=== PATIENT | female | born 1960 | race Caucasian/White ===

== ENCOUNTER → 2019-12-08 15:27 | Outpatient (CLI) | payer OTHER, SELFPAY ==
--- NOTE | ~2019-12-08 | XR_ITS ---
EXAMINATION: XR shoulder RT min 2V DATE: 12/08/2019 15:48 INDICATION: Right shoulder osteoarthritis. Calcific tendinitis. TECHNIQUE: 4 views of right shoulder were obtained. COMPARISON: Right shoulder radiographs 05/06/2019 FINDINGS: Bone alignment is normal. No fracture. There is mild osteoarthritis of glenohumeral joint a nd acromioclavicular joint. IMPRESSION: 1. Unchanged mild polyarticular osteoarthritis. Reviewed, dictated and finalized at location A. 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
== END ==
PROVIDERS: Visit Provider Chiropractor
DX: M19.011 Primary osteoarthritis, right shoulder (principal)
CPT/HCPCS: 73030

== ENCOUNTER → 2020-01-28 15:20 | Outpatient (CLI) | payer OTHER, SELFPAY ==
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
== END ==
PROVIDERS: Visit Provider Chiropractor
DX: S02.85XA Fracture of orbit, unspecified, initial encounter for closed fracture (principal); X58.XXXA Exposure to other specified factors, initial encounter
CPT/HCPCS: 70480

== ENCOUNTER → 2020-08-10 14:08 | Outpatient (CLI) | payer OTHER, SELFPAY ==
--- NOTE | ~2020-08-10 | CT_ITS ---
EXAMINATION: CT chest w con DATE: 08/10/2020 14:37 INDICATION: Chest pain and shortness of breath, history of pulmonary embolism TECHNIQUE: Transaxial computed tomographic images of the chest were obtained after the administration of 75 cc of Omnipaque 350 intravenous contrast. The dose-length product (DLP) was 366.16 mGy-cm. Ite rative reconstruction was used. COMPARISON: None FINDINGS: There is a 9 mm nodule in the superior segment of the left lower lobe. Mild dependent atele ctasis is noted. There is no pleural effusion or pneumothorax. The left lobe of the thyroid is absent . No pathologically enlarged thoracic lymph nodes are identified. The heart size is normal. The gallb ladder is surgically absent. The liver is diffusely low in attenuation when compared with the spleen, consistent with hepatic steatosis. There is mild thoracic spondylosis. IMPRESSION: 1. 9 mm nodule of the left lower lobe which may be infectious or inflammatory. Follow-up CT in three months is recommended. Reviewed, dictated and finalized at location A.
[2020-08-10 14:26] LABS: Estimated Glomerular Filt Rate 50
== END ==
PROVIDERS: PCP Internal Medicine Endocrinology, Diabetes & Metabolism; Visit Provider Internal Medicine Endocrinology, Diabetes & Metabolism
DX: R06.02 Shortness of breath (principal); Z86.711 Personal history of pulmonary embolism; R91.1 Solitary pulmonary nodule
CPT/HCPCS: 71260; Q9967

== ENCOUNTER → 2020-08-18 15:03 | Outpatient (CLI) | payer OTHER, SELFPAY ==
--- NOTE | ~2020-08-18 | US_ITS ---
EXAMINATION:US venous doppler LE BI INDICATION:Abnormal coagulation profile TECHNIQUE: Multiple grayscale, color flow and Doppler images of the right and left lower extremity de ep venous systems were obtained and reviewed. COMPARISON:No prior studies for comparison. FINDINGS: The common femoral, superficial femoral and popliteal veins demonstrate normal respiratory variation, augmentation and compressibility. Color flow is also seen within the posterior tibial, pe roneal, greater saphenous and profunda veins. IMPRESSION: 1: No lower extremity deep venous thrombosis. Reviewed, dictated and finalized at location B.
== END ==
PROVIDERS: PCP Nurse Practitioner; Visit Provider Nurse Practitioner
DX: R79.1 Abnormal coagulation profile (principal)
CPT/HCPCS: 93970

== ENCOUNTER → 2020-12-22 15:15 | Outpatient (CLI) | payer OTHER, SELFPAY ==
--- NOTE | ~2020-12-22 | CT_ITS ---
EXAMINATION:CT diagnostic chest wo con DATE: 12/22/2020 15:34 INDICATION: Pulmonary nodules. Shortness of breath. TECHNIQUE: Computed tomography (CT) of the chest was performed without intravenous contrast. Automate d exposure control and iterative reconstruction technique were employed. The dose-length product (DLP ) was 170.23 mGy-cm. COMPARISON: Chest CT 08/10/2020 FINDINGS: There is mild emphysema. The left lower lobe, there is a 14 mm part solid nodule with 7 mm solid component. There is mild scarring at the lung apices. There is mild atelectasis bilaterally. Th e heart size is normal. There are coronary artery calcifications. No pericardial effusion. There are changes of cholecystectomy. There is moderate thoracic spondylosis. There is mild chronic anterior we dging of multiple vertebral bodies. IMPRESSION: 1. Worsened part-solid nodule in left lung lower lobe suspicious for primary bronchogenic carcinoma. CT-guided biopsy is recommended. Reviewed, dictated and finalized at location A. 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 Worsened part-solid nodule in left lung lower lobe suspicious for primary br onchogenic carcinoma. CT-guided biopsy is recommended.
== END ==
DX: R91.8 Other nonspecific abnormal finding of lung field (principal)
CPT/HCPCS: 71250

== ENCOUNTER 2021-02-09 08:14 | Emergency (ER) | payer OTHER, SELFPAY ==
[2021-02-09] VITALS (36 sets, daily range): BP systolic 113–153; BP diastolic 57–109; PULSE 65–92; RESP 16–97; TEMP 36.4; O2SAT 87–100
--- NOTE | 2021-02-09 08:53 | ED.ALLEREA ---
HPI - Allergic Reaction General Chief complaint: Allergic Reaction Stated complaint: allergic reaction (sob and itching) Time Seen by Provider: 02/09/21 08:24 Source: patient Mode of arrival: ambulatory Limitations: no limitations History of Present Illness HPI narrative: This is a 60 year old female with history of multiple allergic reactions who presents for evaluation of an allergic reaction. She states this morning she developed burning, itching pain to both her feet and hands after she put on a mask at work. She denies any new exposures and this mask was brand new. She denies chest pain, sob, tongue or throat swelling. She has not taken anything for her symptoms this morning. Related Data Home Medications Medication Instructions Recorded Confirmed albuterol sulfate INHALATION 02/09/21 levothyroxine 02/09/21 lorazepam 02/09/21 losartan 02/09/21 prednisone 02/09/21 Allergies Allergy/AdvReac Type Severity Reaction Status Date / Time diclofenac Allergy Severe Anaphylaxis Verified 02/09/21 08:59 insulin detemir Allergy Severe Anaphylaxis Verified 02/09/21 08:59 iohexol Allergy Severe Anaphylaxis Verified 02/09/21 08:59 [From contrast - CT, X-RAY] adhesive tape Allergy Unknown RASH Verified 02/09/21 08:59 codeine Allergy Unknown Unknown Verified 02/09/21 08:59 latex Allergy Unknown ITCHING-ERICH Verified 02/09/21 08:59 VES Review of Systems Review of Systems: All systems reviewed & are unremarkable except as noted in HPI and below PMFSH Past Medical History Medical History (Updated 02/09/21 @ 12:00 by Hilaria Pantoja MD) Diabetes mellitus GERD (gastroesophageal reflux disease) Hypertension Surgical History Surgical History (Updated 02/09/21 @ 08:56 by Hilaria Pantoja MD) Hx of appendectomy Hx of cholecystectomy Family History Family History (Updated 09/19/15 @ 11:15 by DOCTOR UNKNOWN) Other Asthma Carcinoma of colon Cerebrovascular accident Depression Diabetes mellitus Family history of alcoholism Family history of anemia Family history of arthritis Family history of atrial fibrillation Family history of blood dyscrasia Family history of cardiovascular disease Family history of chronic obstructive pulmonary disease Family history of elevated blood lipids Family history of hearing loss Family history of mental disorder Family history of thyroid disease Hypertension Social History Social History Smoking status: Never smoker Alcohol intake: current Exam Const: General: alert Orientation/consciousness: patient oriented x3 HENMT: Mouth: Yes Normal oral and palatal mucosa present and Yes lip normal Throat: uvula midline Other: bilateral external ear redness Eyes: Pupils: Equal, round and reactive pupils present EOM: EOMs intact bilaterally Resp: Effort & Inspection: normal respiratory effort and no retractions Auscultation: clear to auscultation bilaterally Cardio: Rate: regular rate Rhythm: regular rhythm Heart sounds: Murmur heart sound present GI: GI Palp: Yes Soft to palpation, No Tenderness to palpation present (GI) and No Guarding due to palpation present (GI) Skin: General skin exam: normal color Rashes: no rashes Neuro: General: patient oriented x3, moves all extremities and CN's II-XI intact bilaterally Extrem: General: no pedal edema Psych: Affect: normal affect Attitude: cooperative Course Reevaluation(s) Reevaluation #1: PAtient still has some burning in palms but it has improvement. She is reporting nausea currently Date: 02/09/21 Time: 10:10 Reevaluation #2: Patient states she feels better and she is ready for discharge home Date: 02/09/21 Time: 11:58 Vital Signs Vital signs: Vital Signs Pulse Rate 89 02/09/21 08:18 Respiratory Rate 25 H 02/09/21 08:18 Blood Pressure 127/109 H 02/09/21 08:18 Pulse Oximetry 97 02/09/21 08:18 Temperature 97.6 F 02/09/21 08:31 Pulse Rate
[2021-02-09] MEDS: methylPREDNISolone SOD SUCC 125 MG VIAL IV PUSH (09:04)
[2021-02-09] MEDS: FAMOTIDINE 20 MG/2 ML VIAL IV PUSH (09:04)
[2021-02-09] MEDS: diphenhydrAMINE HCl INJ 50 MG/ML VIAL IV PUSH (09:04)
[2021-02-09] MEDS: ONDANSETRON INJ 4 MG/2 ML VIAL IV PUSH (10:23)
== END 2021-02-09 12:11 | disposition home or self-care (01) ==
PROVIDERS: Emergency Provider General Practice
DX: T78.40XA Allergy, unspecified, initial encounter (principal); E11.9 Type 2 diabetes mellitus without complications; K21.9 Gastro-esophageal reflux disease without esophagitis; I10 Essential (primary) hypertension
CPT/HCPCS: 96374; 96375; 99284; J1200; J2405; J2930

== ENCOUNTER → 2021-05-01 15:20 | Outpatient (CLI) | payer OTHER, SELFPAY ==
--- NOTE | ~2021-05-01 | CT_ITS ---
EXAMINATION:CT diagnostic chest wo con DATE: 05/01/2021 15:35 INDICATION: Solitary pulmonary nodule. TECHNIQUE: Computed tomography (CT) of the chest was performed without intravenous contrast. Automate d exposure control and iterative reconstruction technique were employed. The dose-length product (DLP ) was 97.84 mGy-cm. COMPARISON: Chest CT 12/22/2020, 08/10/2020 FINDINGS: There is mild emphysema. There is mild scarring at the lung apices. There is mild scarring in paraspinal right lower lobe. There is mild atelectasis in left lower lobe. There is a 14 mm part s olid nodule in left lower lobe with 7 mm solid component. No pleural effusion. The heart size is norm al. There are coronary artery calcifications. No pericardial effusion. There are changes of cholecyst ectomy. There is moderate thoracic spondylosis. There is mild chronic anterior wedging of multiple ve rtebral vertebral bodies. IMPRESSION: 1. 14 mm part-solid nodule in left lung lower lobe, stable from 12/22/20 and worsened from 08/10/20. T his finding is suspicious for primary bronchogenic carcinoma. CT-guided biopsy is recommended. Reviewed, dictated and finalized at location A. IMPRESSION: 1. 14 mm part-solid nodule in left lung lower lobe, stable from 12/22/20 and wor sened from 08/10/20. This finding is suspicious for primary bronchogenic carcin ga. CT-guided biopsy is recommended.
== END ==
DX: R91.1 Solitary pulmonary nodule (principal)
CPT/HCPCS: 71250

== ENCOUNTER → 2021-09-24 15:55 | Outpatient (CLI) | payer OTHER, SELFPAY ==
--- NOTE | ~2021-09-24 | CT_ITS ---
EXAMINATION: CT sinus wo con DATE: 09/24/2021 16:20 INDICATION: Chronic sinusitis TECHNIQUE: Computed tomography (CT) of the paranasal sinuses was performed without intravenous contra st. The dose-length product was 249.93 mGy-cm. Automated exposure control and iterative reconstructio n technique were employed. COMPARISON: CT dated 02/26/2017 FINDINGS: There is no significant air-fluid level. No periosteal reaction. Minimal mucosal thickening left maxillary sinus. Mastoids are pneumatized. No significant nasal septal deviation. Ostiomeatal u nits are patent IMPRESSION: 1. Minimal left maxillary sinus disease. Reviewed, dictated and finalized at location B. 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
== END ==
PROVIDERS: PCP Nurse Practitioner; Visit Provider Otolaryngology
DX: J32.8 Other chronic sinusitis (principal)
CPT/HCPCS: 70486

== ENCOUNTER → 2021-09-24 16:25 | Outpatient (CLI) | payer OTHER, SELFPAY ==
--- NOTE | ~2021-09-24 | XR_ITS ---
EXAMINATION: XR tibia fibula RT 2V DATE: 09/24/2021 16:59 INDICATION: Right lower leg pain. TECHNIQUE: 2 views of right tibia and fibula were obtained. COMPARISON: None. FINDINGS: Bone alignment is normal. No fracture. Right knee demonstrates mild osteoarthritis of media l and lateral compartments and moderate osteoarthritis of patellofemoral compartment. IMPRESSION: 1. Moderate right knee osteoarthritis. Reviewed, dictated and finalized at location A. 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
--- NOTE | ~2021-09-24 | XR_ITS ---
EXAMINATION: XR knee LT 3V DATE: 09/24/2021 17:00 INDICATION: Left knee pain. TECHNIQUE: 3 views of left knee including standing views were obtained. COMPARISON: None. FINDINGS: Bone alignment is normal. No fracture. Joint spaces are well maintained. There is no knee j oint effusion. IMPRESSION: 1. Normal left knee. Reviewed, dictated and finalized at location A. PROCESSOR IMPRESSION: 1. Normal left knee.
== END ==
PROVIDERS: Visit Provider Nurse Practitioner
DX: M17.11 Unilateral primary osteoarthritis, right knee (principal); M89.8X6 Other specified disorders of bone, lower leg
CPT/HCPCS: 73562; 73590

== ENCOUNTER → 2021-10-09 11:46 | Outpatient (CLI) | payer OTHER, SELFPAY ==
--- NOTE | ~2021-10-09 | US_ITS ---
EXAMINATION: US pelvic complete w TV DATE: 10/09/2021 12:14 INDICATION: Bilateral adnexal pain Comparison:No prior studies for comparison. TECHNIQUE: Multiple transabdominal and endovaginal sonographic images of the pelvis performed. FINDINGS: The uterus is surgically absent. The right ovary is not identified, possibly surgically absent. Left ovary measures 3 x 3.9 x 2.2 cm a nd contains 2 simple cysts, largest measuring 2.2 cm. There is no free fluid in the pelvis. There are no abnormal masses seen on either side. IMPRESSION: 1. Left ovarian cysts, largest measuring up to 2.2 cm. Reviewed, dictated and finalized at location A. SE CUP FILLER
== END ==
PROVIDERS: PCP Nurse Practitioner; Visit Provider Nurse Practitioner
DX: N94.89 Other specified conditions associated with female genital organs and menstrual cycle (principal); R10.32 Left lower quadrant pain; N83.202 Unspecified ovarian cyst, left side; N83.201 Unspecified ovarian cyst, right side
CPT/HCPCS: 76830; 76856

== ENCOUNTER → 2022-01-04 12:48 | Outpatient (CLI) | payer OTHER, SELFPAY ==
--- NOTE | ~2022-01-04 | CT_ITS ---
EXAMINATION: CT chest abdomen pelvis wo con DATE: 01/04/2022 13:11 INDICATION: Gastric diverticulum, ovarian cyst, solitary pulmonary nodule TECHNIQUE: Transaxial computed tomographic images of the chest, abdomen, and pelvis were without intr avenous contrast. The dose-length product (DLP) was 1180.66 mGy-cm. Automated exposure control and it erative reconstruction technique were employed. COMPARISON: 05/01/2021 FINDINGS: CHEST CT: The lungs are free of acute opacities. There is no pleural effusion or pneumothorax. No pathologicall y enlarged thoracic lymph nodes are identified. The heart size is normal. There are changes of left l ower lobectomy with associated volume loss in the left hemithorax. The left thyroid lobe is surgicall y absent. Calcified coronary artery atherosclerosis is noted. There is mild thoracic spondylosis. ABDOMEN/PELVIS CT: The liver is diffusely low in attenuation when compared with the spleen, consistent with hepatic stea tosis. The gallbladder is surgically absent. The spleen, pancreas, and adrenal glands are normal. The kidneys are unremarkable. No pathologically enlarged abdominal or pelvic lymph nodes are identified. There is no free intraperitoneal gas or evidence of bowel obstruction. The appendix is surgically ab sent. There is a 2.7 cm cyst of the left adnexa. There is mild lumbar spondylosis. IMPRESSION: 1. Changes of left lower lobectomy without evidence of suspicious thoracic findings. 2. Simple cyst of the left adnexa with decrease in size. Reviewed, dictated and finalized at location B. 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 Changes of left lower lobectomy without evidence of suspicious thoracic find ings. 2. Simple cyst of the left adnexa with decrease in size.
== END ==
PROVIDERS: PCP Nurse Practitioner
DX: R50.9 Fever, unspecified (principal); K31.4 Gastric diverticulum; R91.1 Solitary pulmonary nodule
CPT/HCPCS: 71250; 74176

== ENCOUNTER → 2022-02-06 15:18 | Outpatient (CLI) | payer OTHER, SELFPAY ==
--- NOTE | ~2022-02-06 | XR_ITS ---
EXAM: XR thoracic spine 2V HISTORY: Pain, Osteoarthritis COMPARISON: 05/06/2019. FINDINGS: Visualized lung parenchyma is clear. Multilevel disc space narrowing and marginal osteophy tosis, including large anterior osteophytes in the midthoracic spine and thoracolumbar junction. Slig htly exaggerated thoracic kyphosis. Vertebral body heights are maintained. Cholecystectomy clips. IMPRESSION: No acute fracture or traumatic malalignment detected in the thoracic spine. Degenerative changes desc ribed above. Reviewed, dictated and finalized at location K. IMPRESSION: No acute fracture or traumatic malalignment detected in the thoracic spine. Deg enerative changes described above.
--- NOTE | ~2022-02-06 | XR_ITS ---
EXAM: XR lumbar spine min 4V HISTORY: Pain, Osteoarthritis COMPARISON: None available FINDINGS: 5 nonrib-bearing lumbar-type vertebral bodies. Possible PEG tube versus other artifact. Co stophrenic clips. Pelvic phleboliths. Lumbar pedicles are intact. 3 mm grade 1 anterolisthesis of L4 on L5. Alignment otherwise intact. Vertebral body heights are maintained. Mild disc space narrowing a t L4-5. Multilevel facet arthropathy. IMPRESSION: No acute fracture or traumatic malalignment in the lumbar spine. Degenerative changes described above . Reviewed, dictated and finalized at location K. IMPRESSION: No acute fracture or traumatic malalignment in the lumbar spine. Degenerative c hanges described above.
--- NOTE | ~2022-02-06 | XR_ITS ---
EXAM: [id number] HISTORY: Pain, Osteoarthritis COMPARISON: CT chest abdomen and pelvis 01/04/2022. FINDINGS: Lungs are clear. Aortic arch calcification. Otherwise unremarkable cardiomediastinal silho uette. No fracture or dislocation. Cholecystectomy clips. IMPRESSION: No acute cardiopulmonary process. No acute osseous finding in the right ribs. Reviewed, dictated and finalized at location K.
== END ==
PROVIDERS: Visit Provider Chiropractor
DX: M19.09 Primary osteoarthritis, other specified site (principal)
CPT/HCPCS: 71101; 72070; 72110

== ENCOUNTER → 2022-02-22 15:30 | Outpatient (CLI) | payer OTHER, SELFPAY ==
--- NOTE | ~2022-02-22 | MR_ITS ---
EXAMINATION: MR MRCP wo con/w 3D wo ind pp DATE: 02/22/2022 16:31 INDICATION: Abnormal liver function tests. TECHNIQUE: Magnetic resonance imaging (MRI) of the abdomen was performed without intravenous contrast . Sequences included coronal T2-weighted FS FSE, coronal T2-weighted FSE, axial T1-weighted LAVA, cor onal FS FIESTA, axial dual-echo T1-weighted SPGR, coronal lava-FLEX, sagittal T2-weighted FSE, axial T2-weighted FSE, and axial DWI. Thick-slab T2-weighted FSE images were obtained for magnetic resonanc e cholangiopancreatography (MRCP). Maximum intensity projection 3-D reconstructions of the volumetric data were created by the technologist. COMPARISON: CT abdomen and pelvis 01/04/2022 FINDINGS: ABDOMEN MRI: There is diffuse hepatic steatosis. The gallbladder is absent. The spleen, pancreas, and adrenal glands are normal. There are cysts in the kidneys measuring up to 4 mm. There are no patholo gically enlarged lymph nodes. There is no free intraperitoneal fluid. There are no dilated loops of b owel. ABDOMEN MRCP: The common duct is normal and measures 10 mm. No choledocholithiasis. IMPRESSION: 1. Diffuse hepatic steatosis. Reviewed, dictated and finalized at location B.
== END ==
PROVIDERS: PCP Nurse Practitioner; Visit Provider Physician Assistant Medical
DX: K76.0 Fatty (change of) liver, not elsewhere classified (principal)
CPT/HCPCS: 74181; 76376

== ENCOUNTER → 2022-03-05 15:11 | Outpatient (CLI) | payer OTHER, SELFPAY ==
--- NOTE | ~2022-03-05 | MR_ITS ---
EXAMINATION: MR thoracic spine wo con DATE: 03/05/2022 15:54 INDICATION: Thoracic disc derangement. TECHNIQUE: Magnetic resonance imaging (MRI) of the thoracic spine was performed without intravenous c ontrast. Sagittal localizer T1-weighted FSE of the cervical spine was obtained. Thoracic spine sequen elvia included sagittal T2-weighted FSE, sagittal T1-weighted FSE, sagittal T2-weighted FS FSE, and axi al T2-weighted FSE. COMPARISON: Thoracic spine radiographs 02/06/2022 FINDINGS: There is 7 degrees levocurvature of cervicothoracic spine. There is kyphosis of thoracic sp ine. There is mild chronic anterior wedging of T5-T8 vertebral bodies. There is a chronic compression fracture of T12 superior endplate with 1/5 loss of height. There is mildly decreased disc height at T4-T5. At T3-T4, there is a right central protrusion with mild central canal stenosis. At T4-T5, ther e is a left central and foraminal zone protrusion with mild central canal stenosis. At T9-T10, there is a left subarticular zone extrusion with mild central canal stenosis. There is multilevel facet bella nt osteoarthritis, severe at many levels. On the right, there is mild neural foraminal stenosis at T1 -T2, T2-T3, T3-T4, T5-T6, T6-T7, and T9-T10. On the left, there is mild neural foraminal stenosis at T4-T5, T6-T7, and T7-T8. The spinal cord signal intensity is normal. At T6, there is posterior indent ation of the spinal cord, likely an arachnoid cyst. IMPRESSION: 1. Mild thoracic spondylosis. 2. Posterior indentation of the spinal cord at T6, likely an arachnoid cyst. 3. Thoracic kyphosis. Reviewed, dictated and finalized at location E.
== END ==
PROVIDERS: PCP Chiropractor; Visit Provider Chiropractor
DX: M47.814 Spondylosis without myelopathy or radiculopathy, thoracic region (principal); M48.04 Spinal stenosis, thoracic region; M40.294 Other kyphosis, thoracic region
CPT/HCPCS: 72146

== ENCOUNTER → 2022-05-08 15:16 | Outpatient (CLI) | payer OTHER, SELFPAY ==
--- NOTE | ~2022-05-08 | XR_ITS ---
XR lumbar spine 2-3V 05/08/2022 15:39 Indication: Back pain Procedure: 3 views lumbar spine Comparison: 02/06/2022 Findings: Vertebral body heights are maintained. There is disc narrowing at all lumbar levels except L4-5. There is facet hypertrophy at L4-5 and L5-S1 with grade 1 degenerative spondylolisthesis at L4- 5. There is cholecystectomy clips. Sacral foramen are symmetric. Impression: 1: Moderate lumbar spondylosis with grade 1 degenerative spondylolisthesis at L4-5. Reviewed, dictated and finalized at location A. Impression: 1: Moderate lumbar spondylosis with grade 1 degenerative spondylolisthesis at L 4-5.
--- NOTE | ~2022-05-08 | XR_ITS ---
XR thoracic spine 3V 05/08/2022 15:39 Indication: Back pain. Procedure: 3 views thoracic spine Comparison: 02/06/2022 Findings: Chronic mild superior endplate compression deformity of T12 with approximately 15-20% loss of vertebral body height. There is mild disc narrowing at multiple levels with small marginal osteoph ytes anteriorly. Accentuated thoracic kyphosis. No acute fracture. No paraspinal soft tissue abnormal ity. There is atherosclerosis of the aorta. Impression: 1: Mild thoracic spondylosis. 2: Mild chronic superior endplate compression deformity of T12. Reviewed, dictated and finalized at location A. Impression: 1: Mild thoracic spondylosis. 2: Mild chronic superior endplate compression deformity of T12.
== END ==
PROVIDERS: PCP Nurse Practitioner; Visit Provider Nurse Practitioner
DX: M47.815 Spondylosis without myelopathy or radiculopathy, thoracolumbar region (principal); S22.080A Wedge compression fracture of T11-T12 vertebra, initial encounter for closed fracture
CPT/HCPCS: 72072; 72100

== ENCOUNTER → 2022-08-08 13:08 | Outpatient (CLI) | payer OTHER, SELFPAY ==
--- NOTE | ~2022-08-08 | XR_ITS ---
EXAMINATION: XR sacrum coccyx min 2V INDICATION: Sacrococcygeal pain TECHNIQUE: Three views of the sacrum and coccyx are obtained. COMPARISON: None available FINDINGS: The bones are osteopenic which limits the sensitivity for fracture however none is seen. No abnormal erosion or sclerosis are identified. There are phleboliths of the pelvis. Surgical clips ar e noted in the right lower quadrant. IMPRESSION: 1. No acute osseous abnormality. Reviewed, dictated and finalized at location F.
--- NOTE | ~2022-08-08 | DEXA_ITS ---
Bone Density Report Name: SIM GUDINO Age: 62 Sex: Female Ethnicity: White Date of : 1960 Indication: osteopenia; height loss; prior fracture; hysterectomy; postmenopausal Referring Provider: TASHIA, DORIS Reyes Study: Bone densitometry was performed. Exam Date: August 08, 2022 Accession number: [id number] Bone Density: Region BMD T-score Z-score Classification AP Spine (L1-L4) 0.944 -0.9 0.7 Normal Femoral Neck (Left) 0.709 -1.3 0.2 Osteopenia Total Hip (Left) 0.983 0.3 1.5 Normal Femoral Neck (Right) 0.620 -2.1 -0.6 Osteopenia Total Hip (Right) 0.891 -0.4 0.7 Normal Total Hip Mean 0.937 -0.1 1.1 Normal World Health Organization criteria for BMD impression classify patients as: Normal (T-score at or above -1.0), Osteopenia (T-score between -1.0 and -2.5), or Osteoporosis (T-score at or below -2.5). 10-year Fracture Risk: FRAX not reported because: Prior hip or vertebral fracture Previous Exams: Region Exam Age BMD T-score BMD Change BMD Change Date g/cm2 vs Baseline vs Previous AP Spine(L1-L4) 08/08/2022 62 0.944 -0.9 0.064* 0.064* 01/10/2017 56 0.880 -1.5 Total Hip(Left) 08/08/2022 62 0.983 0.3 0.087* 0.087* 01/10/2017 56 0.896 -0.4 Total Hip(Right) 08/08/2022 62 0.891 -0.4 0.065* 0.065* 01/10/2017 56 0.826 -0.9 *Denotes significance at 95% confidence level, LSC for AP Spine = 0.022 g/cm2, LSC for Total Hip = 0.027 g/cm2 Clinical Information Provided by Patient: Have had a previous hip or vertebral fracture Has had a low trauma fracture Has used the following medications: Vitamin D Has the following medical conditions: Hysterectomy, LT LUNG CA W/OUT [id number] 06/26/2021 Patient maximum height was 64 Menopause Age: 39 No regular weight bearing exercise Drinks caffeinated beverages Onset of menses at age 12 Number of children 3 Impression: The patient has low bone mass, based on the Right Femoral Neck T-score. The patient has risk factors, including: previous fracture. No significant bone loss was observed. Discussion: INCREASED RISK OF FRACTURE DUE TO HISTORY OF FRACTURE. The patient's previous fracture puts the patient at high risk of a future fracture. In untreated patients, the risk of osteoporotic fracture increases approximately two-fold for each 1.0 SD decrease in T-score. Low bone density is not the only risk factor for fracture; also consider factors
== END ==
PROVIDERS: PCP Nurse Practitioner; Visit Provider Nurse Practitioner
DX: M81.0 Age-related osteoporosis without current pathological fracture (principal); M54.50 Low back pain, unspecified; Z87.891 Personal history of nicotine dependence; M85.851 Other specified disorders of bone density and structure, right thigh
CPT/HCPCS: 72220; 77080

== ENCOUNTER → 2022-09-23 15:16 | Outpatient (CLI) | payer OTHER, SELFPAY ==
--- NOTE | ~2022-09-23 | XR_ITS ---
XR shoulder RT min 2V DATE: 09/23/2022 15:26 INDICATION: Fall. Right shoulder pain, limited range of motion TECHNIQUE: 4 views of right shoulder COMPARISON: December 08, 2019 right shoulder FINDINGS: There is dextroscoliosis and diffuse idiopathic skeletal hyperostosis of the thoracic spine . Osteopenia. No fracture or dislocation, periosteal reaction or bone destruction of the right shoulder. No abnorma l right shoulder soft tissue calcification. There is minimal joint space narrowing and spurring at the acromioclavicular joint consistent with mi ld degenerative change. Right glenohumeral joint space appears well preserved. IMPRESSION: Mild degenerative change at right acromioclavicular joint No fracture or dislocation right shoulder Reviewed, dictated and finalized at location B. 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
== END ==
PROVIDERS: PCP Chiropractor; Visit Provider Chiropractor
DX: M25.70 Osteophyte, unspecified joint (principal); M19.011 Primary osteoarthritis, right shoulder
CPT/HCPCS: 73030

== ENCOUNTER → 2022-11-09 07:29 | Outpatient (CLI) | payer OTHER, SELFPAY ==
--- NOTE | ~2022-11-09 | US_ITS ---
US right upper quadrant DATE: 11/09/2022 07:56 INDICATION: Nonalcoholic steatohepatitis TECHNIQUE: Real-time imaging and Doppler analysis COMPARISON: 02/22/2022 MR MRCP 01/04/2022 CT chest abdomen pelvis FINDINGS: There is diffuse hepatic steatosis. No hepatic space-occupying mass lesion. Normal hepatope kiya portal venous flow direction. No pancreatic mass lesion is evident. Common bile duct measures 10 mm, stable since 02/22/2022. Status post cholecystectomy. IMPRESSION: Hepatic steatosis Status post cholecystectomy Reviewed, dictated and finalized at Location A. Reviewed, dictated and finalized at location A. 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
== END ==
DX: K75.81 Nonalcoholic steatohepatitis (NASH) (principal); K74.60 Unspecified cirrhosis of liver; Z90.49 Acquired absence of other specified parts of digestive tract
CPT/HCPCS: 76705

== ENCOUNTER → 2023-02-06 15:21 | Outpatient (CLI) | payer OTHER, SELFPAY ==
--- NOTE | ~2023-02-06 | CT_ITS ---
EXAMINATION: CT diagnostic chest wo con DATE: 02/06/2023 16:04 INDICATION: Non-small cell lung cancer TECHNIQUE: Computed tomography (CT) of the chest was performed without intravenous contrast. The dose -length product (DLP) was 425.93 mGy-cm. Automated exposure control and iterative reconstruction tech Externaut[employer] were employed. COMPARISON: 01/04/2022 FINDINGS: There are changes of left lower lobectomy. No suspicious pulmonary nodules are identified. The lungs are free of acute opacities. No pleural effusion or pneumothorax. No pathologically enlarge d thoracic lymph nodes are identified. The heart size is normal. There is calcified coronary artery a therosclerosis. The gallbladder is surgically absent. There are bridging osteophytes at multiple leve ls in the spine, consistent with diffuse idiopathic skeletal hyperostosis (DISH). IMPRESSION: 1. Changes of left lower lobectomy without suspicious thoracic findings. Reviewed, dictated and finalized at location F.
== END ==
PROVIDERS: Visit Provider Internal Medicine
DX: C34.90 Malignant neoplasm of unspecified part of unspecified bronchus or lung (principal); T50.8X5A Adverse effect of diagnostic agents, initial encounter; Z90.2 Acquired absence of lung [part of]
CPT/HCPCS: 71250

== ENCOUNTER → 2023-03-17 15:17 | Outpatient (CLI) | payer OTHER, SELFPAY ==
--- NOTE | ~2023-03-17 | MM_ITS ---
EXAMINATION: MM screening alexia BI w luciano HISTORY: Screening mammogram, family history of breast cancer in her mother. TECHNIQUE: Craniocaudal and mediolateral oblique 3-D tomosynthesis images were obtained and synthetic 2-D images were generated. CAD analysis was submitted and interpreted. COMPARISON: 03/16/2014, 02/16/2011 BREAST PARENCHYMAL COMPOSITION: There are scattered areas of fibroglandular density. FINDINGS: No suspicious mass, calcification, or architectural distortion are identified in either cristy ast to suggest malignancy. There has been no suspicious interval change. IMPRESSION: 1. No mammographic evidence of malignancy. 2. Recommend routine screening mammography in one year. BI-RADS Category 1: Negative Reviewed, dictated and finalized at location A.
== END ==
PROVIDERS: PCP Nurse Practitioner; Visit Provider Nurse Practitioner
DX: Z12.31 Encounter for screening mammogram for malignant neoplasm of breast (principal)
CPT/HCPCS: 77063; 77067

== ENCOUNTER → 2023-06-16 15:16 | Outpatient (CLI) | payer OTHER, SELFPAY ==
--- NOTE | ~2023-06-16 | CT_ITS ---
EXAMINATION: CT sinus wo con DATE: 06/16/2023 15:30 INDICATION: Sinusitis TECHNIQUE: Computed tomography (CT) of the paranasal sinuses was performed without intravenous contra st. The dose-length product was 260.54 mGy-cm. Automated exposure control and iterative reconstructio n technique were employed. COMPARISON: CT dated 09/24/2021 FINDINGS: There is mild mucosal thickening of the left maxillary antrum. No significant mucoperiostea l reaction. No air-fluid levels. The ostiomeatal units are patent. No significant nasal septal deviat ion. IMPRESSION: 1. Mild mucosal thickening of the left maxillary sinus. Reviewed, dictated and finalized at location B.
== END ==
PROVIDERS: PCP Otolaryngology; Visit Provider Otolaryngology
DX: J34.89 Other specified disorders of nose and nasal sinuses (principal)
CPT/HCPCS: 70486

== ENCOUNTER → 2023-08-12 15:17 | Outpatient (CLI) | payer OTHER, SELFPAY ==
--- NOTE | ~2023-08-12 | CT_ITS ---
EXAMINATION:CT diagnostic chest wo con DATE: 08/12/2023 15:37 INDICATION: Non-small cell lung cancer. TECHNIQUE: Computed tomography (CT) of the chest was performed without intravenous contrast. Automate d exposure control and iterative reconstruction technique were employed. The dose-length product (DLP ) was 296.83 mGy-cm. COMPARISON: Chest CT 02/06/2023 FINDINGS: There is mild emphysema. There is mild scarring at the lung apices. There is a stable 3 mm nodule left upper lobe, likely benign. There is mild scarring in paraspinal right lower lobe. There a re changes of left lower lobectomy. No pleural effusion. The heart size is normal. There are coronary artery calcifications. No pericardial effusion. There is diffuse hepatic steatosis. There are change s of cholecystectomy. There is mild thoracic spondylosis. Thoracic kyphosis is noted. IMPRESSION: 1. No evidence of metastatic disease. Reviewed, dictated and finalized at location E.
== END ==
PROVIDERS: PCP Nurse Practitioner
DX: C34.90 Malignant neoplasm of unspecified part of unspecified bronchus or lung (principal)
CPT/HCPCS: 71250

== ENCOUNTER → 2023-08-16 07:30 | Outpatient (CLI) | payer OTHER, SELFPAY ==
--- NOTE | ~2023-08-16 | US_ITS ---
US abdomen limited INDICATION: Liver cirrhosis PROCEDURE: Realtime right upper abdominal ultrasound. COMPARISON: No prior studies for comparison. FINDINGS: The pancreas is normal without focal mass or pancreatic ductal dilation. Liver echotexture is normal without focal mass or intrahepatic biliary dilatation. There is normal directional flow i n the portal vein. Gallbladder is surgically absent Common bile duct measures 8.7 mm. No sonographic Crowell's sign. IMPRESSION: 1: Unremarkable limited abdominal ultrasound. Reviewed, dictated and finalized at location A.
== END ==
DX: K74.60 Unspecified cirrhosis of liver (principal); K75.81 Nonalcoholic steatohepatitis (NASH)
CPT/HCPCS: 76705

== ENCOUNTER → 2023-10-16 15:19 | Outpatient (CLI) | payer OTHER, SELFPAY ==
--- NOTE | ~2023-10-16 | XR_ITS ---
EXAM: XR elbow RT min 3V DATE: 10/16/2023 15:32 HISTORY: RIGHT ELBOW PAIN . COMPARISON: 10/08/2019. FINDINGS: Normal mineralization. No fracture or dislocation. No lytic or blastic lesion. Mild degene rative change of the elbow join. No erosion or periosteal change. Soft tissues within normal limits. IMPRESSION: Mild osteoarthritis of the right elbow. Reviewed, dictated and finalized at location K. 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
== END ==
PROVIDERS: PCP Nurse Practitioner; Visit Provider Nurse Practitioner
DX: M19.021 Primary osteoarthritis, right elbow (principal)
CPT/HCPCS: 73080

== ENCOUNTER → 2023-12-02 16:04 | Outpatient (CLI) | payer OTHER, SELFPAY ==
--- NOTE | ~2023-12-02 | MR_ITS ---
MRI of the lumbar spine Clinical History: Radiculopathy Technique: Axial T2-weighted images, and sagittal T1-weighted, T2-weighted, and and T2 fat-sat images were acquired. Findings: No fracture identified. There is 3 mm anterolisthesis of L4 over L5. No suspicious bone mar row signal abnormality seen. At L1-L2, there is no disc bulge or herniation. There is mild facet arthropathy. No central canal cornel nosis or neural foraminal narrowing. At L2-L3, there is minimal disc bulge. There is minimal facet arthropathy. No central canal stenosis or neural foraminal narrowing seen. At L3-L4, there is no disc bulge or herniation. There is moderate facet arthropathy. No central canal stenosis or neural foraminal narrowing. At L4-L5, there is mild disc bulge and severe facet arthropathy. There is minimal central canal steno sis. Neural foramina are preserved. At L5-S1, there is minimal disc bulge and tiny annular fissure. There is moderate to advanced facet a rthropathy. No central canal stenosis or left neural foraminal narrowing. There is moderate right azam ral foraminal narrowing. Paravertebral soft tissues are unremarkable. Impression: Mild spondylitic changes, as above. 3 mm anterolisthesis of L4 over L5. Reviewed, dictated and finalized at [facility]. [employer] Impression: Mild spondylitic changes, as above. 3 mm anterolisthesis of L4 over L5.
== END ==
PROVIDERS: PCP Anesthesiology Pain Medicine; Visit Provider Anesthesiology Pain Medicine
DX: M43.06 Spondylolysis, lumbar region (principal)
CPT/HCPCS: 72148

== ENCOUNTER → 2023-12-23 15:59 | Outpatient (CLI) | payer OTHER, SELFPAY ==
--- NOTE | ~2023-12-23 | XR_ITS ---
EXAM: XR thoracic spine 3V DATE: 12/23/2023 16:18 HISTORY: THORACIC BACK PAIN . COMPARISON: 05/08/2022. FINDINGS: Vertebral body alignment intact. Exaggerated kyphosis. Stable mild anterior wedge deformit y at T7 and T12. Moderate multilevel disc space narrowing with marginal osteophytosis and multiple br idging anterior osteophytes. No traumatic malalignment or fracture. Visualized lung parenchyma is lindsey ar. IMPRESSION: No acute fracture or traumatic malalignment detected in the thoracic spine. Stable mild c ompression deformities at T7 and T12. Moderate multilevel degenerative disc disease. Reviewed, dictated and finalized at location K. NEUROLOGY IMPRESSION: No acute fracture or traumatic malalignment detected in the thoraci c spine. Stable mild compression deformities at T7 and T12. Moderate multilevel degenerative disc disease.
== END ==
PROVIDERS: PCP Nurse Practitioner; Visit Provider Nurse Practitioner Family
DX: M51.34 Other intervertebral disc degeneration, thoracic region (principal)
CPT/HCPCS: 72072

== ENCOUNTER 2024-02-02 15:18 | Outpatient (CLI) | payer OTHER, SELFPAY ==
--- NOTE | ~2024-02-02 | CT_ITS ---
CT Scan of the Chest without Contrast: Clinical Indication: Lung cancer Technique: Contiguous sections were acquired throughout the chest without intravenous contrast. Dose reduction technique was used on this scan by utilizing automated exposure control and iterative recon struction technique. The dose-length product (DLP) was 380.75 mGy-cm. COMPARISON: 08/12/2023 Findings: There is no evidence of any significant mediastinal, hilar or axillary lymphadenopathy. Coronary jet ry calcifications are present. There is no evidence of pleural or pericardial effusion. Status post prior left lower lobectomy. Lungs otherwise are clear. No consolidation or pulmonary nodu le seen currently. Images through the upper abdomen reveal no abnormalities. Impression: Status post left lower lobectomy. No evidence of active malignancy or metastatic disease. Clear lungs . Reviewed, dictated and finalized at [facility]. Impression: Status post left lower lobectomy. No evidence of active malignancy or metastati c disease. Clear lungs.
== END 2024-02-02 15:19 ==
DX: C34.90 Malignant neoplasm of unspecified part of unspecified bronchus or lung (principal)
CPT/HCPCS: 71250

== ENCOUNTER 2024-03-31 15:24 | Outpatient (CLI) | payer OTHER, SELFPAY ==
--- NOTE | ~2024-03-31 | US_ITS ---
Renal-Bladder ultrasound Clinical History: Chronic kidney disease Technique: Real-time sonographic imaging of the kidneys and urinary bladder was performed. Findings: The right kidney measures 10.8 cm in length and the left kidney measures 10.2 cm. There is no hydronephrosis or renal calculus identified. Renal cortical echogenicity is within normal limits. No renal mass lesion is identified. The urinary bladder is partially distended at the time of this exam. No intraluminal echoes are ident ified. No abnormal wall thickening is seen. Impression: Unremarkable ultrasound of the kidneys and urinary bladder. Reviewed, dictated and finalized at location M. Impression: Unremarkable ultrasound of the kidneys and urinary bladder.
== END 2024-03-31 15:25 ==
LOC: MICIMG 15:24
PROVIDERS: PCP Nurse Practitioner Family; Visit Provider Internal Medicine Nephrology
DX: E11.22 Type 2 diabetes mellitus with diabetic chronic kidney disease (principal); I12.9 Hypertensive chronic kidney disease with stage 1 through stage 4 chronic kidney disease, or unspecified chronic kidney disease; N18.31 Chronic kidney disease, stage 3a
CPT/HCPCS: 76775

== ENCOUNTER 2024-04-29 16:30 | Emergency (ER) | payer OTHER, SELFPAY ==
[2024-04-29 16:40] VITALS: BP 143/75; PULSE 107; RESP 18; TEMP 36.4; O2SAT 97
--- NOTE | 2024-04-29 16:53 | ED.URI ---
HPI - URI/Sore Throat General Chief Complaint: Upper Respiratory Infection Stated Complaint: Sore Throat/Cough Time Seen by Provider: 04/29/24 16:53 Source: patient, RN notes reviewed and old records reviewed Mode of arrival: ambulatory Limitations: no limitations History of Present Illness HPI Narrative: 64-year-old female to [facility] for complaint of productive cough with white sputum, sore throat, yellow nasal discharge, fever to 102?, left ear discomfort, body aches for 1 week. Patient endorses history lung cancer with left lower lobe removal, fatty liver disease, 43 year history of smoking. Patient reports quitting in May of 2021. Patient denies allergies, nausea, vomiting, diarrhea, abdominal pain. patient states that today is the 1st day she has been able to get out of bed for several days and that she has missed work all week. Patient requesting a work note for tomorr and Friday. Patient able to tolerate fluids by mouth. Patient appears tired. Respirations even and nonlabored. Patient speaking in full sentences without difficulty. Patient in no acute distress. Related Data Home Medications Medication Instructions Recorded Confirmed albuterol sulfate 90 mcg/actuation inhalation 02/09/21 04/23/24 aerosol inhaler levothyroxine 25 mcg tablet 02/09/21 04/23/24 losartan 100 mg tablet 02/09/21 04/23/24 insulin pump cart,cont inf,RF 11/22/22 04/23/24 ezetimibe 10 mg tablet (Zetia) 10 mg PO DAILY 12/17/23 04/23/24 aspirin 81 mg tablet,delayed 81 mg PO DAILY 03/23/24 04/23/24 release lansoprazole 30 mg capsule,delayed 30 mg PO DAILY 03/23/24 04/23/24 release adapalene 0.3 % topical gel 1 applic topical QPM 04/02/24 04/23/24 insulin lispro 100 unit/mL continuous IV infusion 04/02/24 04/23/24 subcutaneous solution (Humalog U-100 Insulin) olopatadine 665 mcg-mometasone 25 spray intranasal 04/29/24 mcg/spray nasal spray (Ryaltris) tiotropium 2.5 mcg-olodaterol 2.5 inhalation 04/29/24 mcg/actuation mist for inhalation (Stiolto Respimat) Allergies Allergy/AdvReac Type Severity Reaction Status Date / Time diclofenac Allergy Severe Anaphylaxis Verified 04/23/24 07:53 insulin detemir Allergy Severe Anaphylaxis Verified 04/23/24 07:53 iohexol Allergy Severe Anaphylaxis Verified 04/23/24 07:53 [From contrast - CT, X-RAY] atorvastatin Allergy Mild Muscle Pain Verified 04/23/24 07:53 buspirone Allergy Mild Hives Verified 04/23/24 07:53 metformin Allergy Mild Other Verified 04/23/24 07:53 naproxen Allergy Mild Itching Verified 04/23/24 07:53 sitagliptin [From Januvia] Allergy Mild Anaphylaxis Verified 04/23/24 07:53 adhesive tape Allergy Unknown RASH Verified 04/23/24 07:53 codeine Allergy Unknown Unknown Verified 04/23/24 07:53 latex Allergy Unknown ITCHING-ERICH Verified 04/23/24 07:53 VES Review of Systems Review of Systems: All systems reviewed & are unremarkable except as noted in HPI and below Constitutional: Constitutional: Reports body ache(s), Reports fatigue and Reports headache(s) Eyes: Eyes: Reports no additional eye complaints ENT: Reports as per HPI, Reports otalgia ( left), Reports nasal congestion, Reports nasal discharge, Reports sinus pain, Reports sinus pressure and Reports sore throat Cardiovascular: Cardiovascular: Reports no additional cardiovascular complaints, Denies chest pain and Denies dyspnea Respiratory: Respiratory: Reports no additional respiratory complaints, Reports cough and Denies dyspnea Gastrointestinal: Gastrointestinal: Reports no additional gastrointestinal complaints Musculoskeletal: Musculoskeletal: Reports as per HPI and Reports myalgias Neurologic: Reports system reviewed and no additional complaints, except as documented Psychiatric: Psychiatric: Reports no additional psychiatric complaints PMFSH Past Medical History Medical History Anxiety COPD (chronic obstructive pulmo
== END 2024-04-29 17:30 | disposition home or self-care (01) ==
PROVIDERS: Emergency Provider Nurse Practitioner Family; PCP Family Medicine
DX: R05.9 Cough, unspecified (principal); J32.9 Chronic sinusitis, unspecified; K76.0 Fatty (change of) liver, not elsewhere classified; Z85.118 Personal history of other malignant neoplasm of bronchus and lung; Z90.2 Acquired absence of lung [part of]; Z87.891 Personal history of nicotine dependence; J44.9 Chronic obstructive pulmonary disease, unspecified; K21.9 Gastro-esophageal reflux disease without esophagitis; E78.5 Hyperlipidemia, unspecified; I10 Essential (primary) hypertension; E03.9 Hypothyroidism, unspecified; E11.40 Type 2 diabetes mellitus with diabetic neuropathy, unspecified; Z79.4 Long term (current) use of insulin; M81.0 Age-related osteoporosis without current pathological fracture
CPT/HCPCS: 99213; G0463

== ENCOUNTER 2024-06-07 14:40 | Outpatient (CLI) | payer OTHER, SELFPAY ==
--- NOTE | ~2024-06-07 | MR_ITS ---
EXAMINATION: MR shoulder LT wo con DATE: 06/07/2024 15:17 INDICATION: Left shoulder pain. TECHNIQUE: Magnetic resonance imaging (MRI) of the left shoulder was performed without intravenous co ntrast. Sequences included axial PD-weighted FS FSE, coronal oblique PD-weighted FS FSE and T2-weight ed FS FSE, and sagittal oblique T2-weighted FS FSE and T1-weighted FSE. COMPARISON: Left shoulder radiographs 12/17/2023 FINDINGS: Coracoacromial arch: The acromion undersurface is flat in morphology (type I). There is severe acromioclavicular joint ost eoarthritis including inferiorly directed osteophytes. There is a physiologic volume of fluid in suba cromial/subdeltoid bursa. Rotator cuff: There is moderate supraspinatus tendinopathy and mild infraspinatus tendinopathy. There is an articul ar-sided partial tear of supraspinatus tendon measuring 4 mm anterior to posterior by 6 mm proximal t o distal by 60% tendon thickness. Teres minor tendon is normal. There is an articular-sided partial t hickness tear of subscapularis tendon. There is no asymmetric fatty atrophy of the rotator cuff muscl e bellies. Biceps tendon and glenoid labrum: Biceps tendon is in bicipital groove. There is mild intra-articular biceps tendinopathy. The glenoid labrum is intact. Fluid: There is a small glenohumeral joint effusion. Bones/cartilage: There is shallow partial-thickness cartilage loss of glenoid and humeral head. IMPRESSION: 1. Partial-thickness tears of the rotator cuff. 2. Mild glenohumeral joint chondrosis. 3. Mild intra-articular biceps tendinopathy. 4. Severe acromioclavicular joint osteoarthritis. 5. Small glenohumeral joint effusion. Reviewed, dictated and finalized at location A.
== END 2024-06-07 14:41 ==
LOC: MICIMG 14:41
PROVIDERS: PCP Family Medicine; Visit Provider Orthopaedic Surgery
DX: M25.512 Pain in left shoulder (principal); M75.112 Incomplete rotator cuff tear or rupture of left shoulder, not specified as traumatic; M19.012 Primary osteoarthritis, left shoulder; M25.412 Effusion, left shoulder
CPT/HCPCS: 73221

== ENCOUNTER 2024-08-13 08:29 | Outpatient (CLI) | payer OTHER, SELFPAY ==
--- NOTE | ~2024-08-13 | XR_ITS ---
EXAMINATION: XR hand RT min 3V DATE: 08/13/2024 08:35 INDICATION: Nontraumatic radial sided right wrist pain TECHNIQUE: Posteroanterior, oblique and lateral views of the right hand were obtained. COMPARISON: 10/08/2019 FINDINGS: Alignment is normal. No fracture. Chondrocalcinosis at the wrist joint. Unchanged tiny corticated oss icle near the tip of the ulnar styloid process which could represent either a degenerative loose body , nonunited avulsion fracture fragment or heterotopic ossicle related to chronic soft tissue injury. Mild osteoarthritis at the wrist, triscaphe, first carpometacarpal and a few interphalangeal joints w ith distal predominance. No erosions. Soft tissues are unremarkable. IMPRESSION: 1. 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 Reviewed, dictated and finalized at location A. IMPRESSION: 1. 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
== END 2024-08-13 08:30 | disposition home or self-care (01) ==
LOC: MICIMG 08:30
PROVIDERS: PCP Family Medicine; Visit Provider Orthopaedic Surgery
DX: M11.231 Other chondrocalcinosis, right wrist (principal); M19.031 Primary osteoarthritis, right wrist; M19.041 Primary osteoarthritis, right hand
CPT/HCPCS: 73130

== ENCOUNTER 2024-08-24 15:37 | Outpatient (CLI) | payer OTHER, SELFPAY ==
--- NOTE | ~2024-08-24 | CT_ITS ---
CT sinus wo con Ordering provider: Caleb Du M.D. History: . Acute recurrent maxillary sinusitis . Comparison: June 16, 2023 Technique: Thin slice Scans CT of the paranasal sinuses was performed with coronal and sagittal refor matted images. No IV contrast. . Automated exposure control and iterative reconstruction technique w ere employed. The dose-length product was 365.34 mGy-cm. Findings: NASAL SEPTUM: midline. OSTEOMEATAL UNITS: Bilaterally patent. NASAL TURBINATES AND NASOPHARYNX: Normal. PARANASAL SINUSES: Well aerated. Minimal mucosal thickening of the left maxillary sinus. VISUALIZED MASTOIDS: Normal as visualized. BONES: Normal. SUPERFICIAL SOFT TISSUES/VISUALIZED BRAIN PARENCHYMA: Normal. IMPRESSION: Left maxillary sinus disease. No change from previous examination Reviewed, dictated and finalized at location A.
== END 2024-08-24 15:38 | disposition home or self-care (01) ==
LOC: GOSHIMG 15:38
PROVIDERS: PCP Family Medicine; Visit Provider Otolaryngology
DX: J01.01 Acute recurrent maxillary sinusitis (principal)
CPT/HCPCS: 70486

== ENCOUNTER 2024-09-02 15:21 | Outpatient (CLI) | payer OTHER, SELFPAY ==
--- NOTE | ~2024-09-02 | CT_ITS ---
CT Scan of the Chest without Contrast: Clinical Indication: Lung cancer Technique: Contiguous sections were acquired throughout the chest without intravenous contrast. Dose reduction technique was used on this scan by utilizing automated exposure control and iterative recon struction technique. The dose-length product (DLP) was 443.46 mGy-cm. COMPARISON: 02/02/2024 Findings: There is no evidence of any significant mediastinal, hilar or axillary lymphadenopathy. Coronary jet ry calcifications are present. There is no evidence of pleural or pericardial effusion. Status post left lower lobectomy. No suspicious pulmonary nodule or consolidation seen. Images through the upper abdomen reveal probable diffuse hepatic steatosis. Impression: No evidence of active malignancy or metastatic disease. Status post left lower lobectomy. Reviewed, dictated and finalized at [facility]. 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 Status post left lower lobectomy.
== END 2024-09-02 15:22 | disposition home or self-care (01) ==
LOC: MICIMG 15:22
PROVIDERS: PCP Family Medicine
DX: C34.90 Malignant neoplasm of unspecified part of unspecified bronchus or lung (principal); Z90.2 Acquired absence of lung [part of]
CPT/HCPCS: 71250

== ENCOUNTER 2024-10-14 12:42 | Outpatient (CLI) | payer OTHER, SELFPAY ==
--- NOTE | ~2024-10-14 | MM_ITS ---
EXAMINATION: MM screening alexia BI w luciano HISTORY: Screening TECHNIQUE: Craniocaudal and mediolateral oblique 3-D tomosynthesis images were obtained and synthetic 2-D images were generated. CAD analysis was submitted and interpreted. COMPARISON: No prior mammogram is available for comparison at this institution. Comparison to multipl e prior studies sequentially, with oldest reviewed study dated 03/16/2014. BREAST PARENCHYMAL COMPOSITION: Not dense: There are scattered areas of fibroglandular density. FINDINGS: There is no evidence of suspicious mass, calcification, or architectural distortion to sugg est malignancy in either breast. There has been no suspicious interval change. IMPRESSION: 1. No mammographic evidence of malignancy. 2. Recommend routine screening mammography in one year. BI-RADS Category 1: Negative Reviewed, dictated and finalized at location B. 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
== END 2024-10-14 12:43 | disposition home or self-care (01) ==
LOC: MICIMG 12:45
PROVIDERS: PCP Family Medicine
DX: Z12.31 Encounter for screening mammogram for malignant neoplasm of breast (principal)
CPT/HCPCS: 77063; 77067

== ENCOUNTER 2025-02-05 07:19 | Outpatient (CLI) | payer OTHER, SELFPAY ==
--- NOTE | ~2025-02-05 | US_ITS ---
Limited Abdominal Sonogram: Real-time sonographic imaging of the right upper quadrant was performed. Clinical History: Nonalcoholic steatohepatitis Findings: The liver appears echogenic, with no evidence of mass lesion or bile duct dilatation. Poss ible minimal nodularity of the hepatic contour. Main portal vein demonstrates normal direction of alverto w. The gallbladder is absent, compatible prior cholecystectomy. The common bile duct measures 9 mm. The visualized pancreas, aorta, and IVC are unremarkable. Impression: Diffuse fatty infiltration of the liver, with possible early cirrhotic change. Status post cholecystectomy. Reviewed, dictated and finalized at location . Impression: Diffuse fatty infiltration of the liver, with possible early cirrhotic change. Status post cholecystectomy.
== END 2025-02-05 07:20 | disposition home or self-care (01) ==
LOC: MICIMG 07:20
PROVIDERS: PCP Internal Medicine Gastroenterology; Visit Provider Internal Medicine Gastroenterology
DX: K75.81 Nonalcoholic steatohepatitis (NASH) (principal); K74.60 Unspecified cirrhosis of liver
CPT/HCPCS: 76705

== ENCOUNTER 2025-03-29 15:29 | Outpatient (CLI) | payer OTHER, SELFPAY ==
--- NOTE | ~2025-03-29 | MR_ITS ---
MRI of the left knee Clinical history: Pain Technique: Coronal proton density and proton density-weighted images, sagittal proton-density and T2 fat-sat images, and axial proton-density fat-saturated images were acquired. Findings: Anterior and posterior cruciate ligaments are intact. Medial collateral ligament and the la teral collateral ligament complex are intact. Popliteus tendon is intact. Medial and lateral menisci are intact, without evidence of tear. There is mild tricompartmental diffuse chondral thinning. No focal high-grade chondral lesion evident . Bone marrow signals are essentially unremarkable. Extensor mechanism is intact. No significant joint effusion or Perez's cyst. Impression: Mild diffuse chondral thinning. No ligamentous injury or meniscal tear seen. Reviewed, dictated and finalized at [facility]. Impression: Mild diffuse chondral thinning. No ligamentous injury or meniscal tear seen.
== END 2025-03-29 15:30 | disposition home or self-care (01) ==
LOC: MICIMG 15:29
PROVIDERS: PCP Internal Medicine Gastroenterology; Visit Provider Nurse Practitioner Family
DX: M25.562 Pain in left knee (principal)
CPT/HCPCS: 73721

== ENCOUNTER 2025-03-29 15:30 | Outpatient (CLI) | payer OTHER, SELFPAY ==
--- NOTE | ~2025-03-29 | CT_ITS ---
CT Scan of the Chest without Contrast: Clinical Indication: Lung cancer Technique: Contiguous sections were acquired throughout the chest without intravenous contrast. Dose reduction technique was used on this scan by utilizing automated exposure control and iterative recon struction technique. The dose-length product (DLP) was 397.81 mGy-cm. COMPARISON: 09/02/2024 Findings: There is no evidence of any significant mediastinal, hilar or axillary lymphadenopathy. Coronary jet ry calcifications are present. There is no evidence of pleural or pericardial effusion. Status post left lower lobectomy. Lungs are otherwise clear. Images through the upper abdomen reveal no abnormalities. There is DISH of the thoracic spine. Impression: Status post left lower lobectomy. Clear lungs. No evidence for active malignancy or metastatic diseas e. Reviewed, dictated and finalized at [facility] [place]. Impression: Status post left lower lobectomy. Clear lungs. No evidence for active malignanc y or metastatic disease.
== END 2025-03-29 15:31 | disposition home or self-care (01) ==
LOC: MICIMG 15:31
PROVIDERS: PCP Internal Medicine Gastroenterology; Visit Provider Nurse Practitioner Family
DX: C34.90 Malignant neoplasm of unspecified part of unspecified bronchus or lung (principal)
CPT/HCPCS: 71250